=== PATIENT | male | born 1985 | race Caucasian/White ===

== ENCOUNTER 2023-02-14 20:58 | Emergency (ER) | payer OTHER, SELFPAY ==
[2023-02-14 20:58] VITALS: BP 149/87; PULSE 87; RESP 16; TEMP 37.3; O2SAT 97; BMI 36.5
--- NOTE | 2023-02-14 21:01 | ECG_ITS ---
APPROVED REPORT Exam: Resting ECG HR:80 bpm ECG Measurements Heart Rate 80 AXES MT 150 P 39 QRSd 98 QRS -36 QT 289 T 11 QTc 324 Conclusion SINUS RHYTHM LEFT AXIS DEVIATION [QRS AXIS < -30] PATTERN CONSISTENT WITH PULMONARY DISEASE INCOMPLETE RIGHT BUNDLE BRANCH BLOCK [90+ ms QRS DURATION, TERMINAL R IN V1/V2, 40+ ms S IN I/aVL/V4/V5/V6] NONSPECIFIC T-WAVE ABNORMALITY ABNORMAL ECG UNCONFIRMED REPORT Electronically signed by : Sabas Tomlinson MD 02/16/2023 08:54:33
--- NOTE | 2023-02-14 21:12 | XR_ITS ---
PROCEDURE INFORMATION: Exam: XR Chest Exam date and time: 02/14/2023 9:10 PM Age: 37 years old Clinical indication: Shortness of breath; Additional info: SOA TECHNIQUE: Imaging protocol: Radiologic exam of the chest. Views: 2 views. COMPARISON: No relevant prior studies available. FINDINGS: Lungs: No evidence of acute pulmonary disease or infiltrates; lung clemens appear clear. Pleural spaces: No evidence of pleural effusion, pneumothorax, or pleural thickening in the visualized pleural spaces. Heart/Mediastinum: No evidence of mediastinal widening or cardiac silhouette enlargement; the mediastinum and heart appear within normal limits for contour and size. Bones/joints: No evidence of acute osseous abnormalities within the visualized portions of the thoracic spine and ribs. Osseous structures appear appropriate for patient age. Gastrointestinal tract: There is mild gaseous distention of partially visualized bowel loops. IMPRESSION: No dense parenchymal consolidation, pleural effusion, or pneumothorax.
[2023-02-14 21:19] LABS: Basophils # 0.1 K/mm3 (0-0.2); Basophils % 0.6 % (0.1-2.0); Eosinophils # 0.4 K/mm3 (0.0-0.4); Eosinophils % 4.2 % (0.1-12.0); Hematocrit 47.1 % (42.0-52.0); Hemoglobin 15.6 g/dL (14.1-18.0); Lymphocytes # 2.7 K/mm3 (0.7-4.5); Lymphocytes % 31.4 % (10-50); Mean Corpuscular HGB Conc 33.2 g/dL (31.8-35.4); Mean Corpuscular Hemoglobin 29.3 pg (27.0-31.2); Mean Corpuscular Volume 88.4 fl (80-94); Mean Platelet Volume 8.4 fl (7.4-10.4); Monocytes # 0.6 K/mm3 (0.1-1.0); Monocytes % 7.2 % (1.7-9.3); Neutrophils # 4.9 K/mm3 (1.8-7.8); Neutrophils % 56.6 % (37.0-80.0); Platelet Count 334 K/mm3 (142-424); Red Blood Count 5.33 M/mm3 (4.60-6.20); Red Cell Distribution Width 13.4 % (11.5-17.5); White Blood Count 8.7 K/mm3 (4.8-10.8)
[2023-02-14 21:21] LABS: Chloride 105 mmol/L (98-107)
[2023-02-14 21:22] LABS: Potassium 3.5 mmoL/L (3.5-5.1); Sodium 138 mmol/L (136-145)
[2023-02-14 21:24] LABS: Alanine Aminotransferase 55 U/L (12-78); Albumin Level 4.4 g/dl (3.5-5.0); Albumin/Globulin Ratio 1.3 (1.1-1.8); Alkaline Phosphatase 90 U/L (38-126); Anion Gap 10.5 mEq/L (5-15); Aspartate Amino Transferase 40 U/L (17-59); Bilirubin,Total 0.4 mg/dl (0.2-1.3); Blood Urea Nitrogen 18 mg/dl (9-20); Carbon Dioxide 26 mmol/L (22.0-30.0); Creatinine Clearance Estimated 175 mL/min (50-200); Estimated Glomerular Filt Rate 95 ml/min (>60); GFR (African American) 116 ML/MIN (>60); Globulin 3.4 g/dL (1.3-3.2); Total Protein,Serum 7.8 g/dl (6.3-8.2)
[2023-02-14 21:25] LABS: Calcium 9.1 mg/dl (8.4-10.2); Glucose 112 mg/dl (74-100)
[2023-02-14 21:30] VITALS: BP 125/85; PULSE 79; RESP 22; O2SAT 94
[2023-02-14 21:59] LABS: Troponin I < 0.01 ng/ml (0.00-0.034)
--- NOTE | 2023-02-14 22:01 | HMH.EDCP ---
Discharge Plan Disposition Patient Disposition: Still a Patient Prescriptions Prescriptions: New benzonatate 100 mg capsule 100 mg PO TID PRN (Reason: cough) 5 Days Qty: 20 0RF albuterol sulfate 90 mcg/actuation HFA aerosol inhaler 4 inh inhalation Q4H PRN (Reason: shortness of breath or wheezing) Qty: 8.5 0RF Rx Instructions: 4 puffs every 4 hours for 48 hours then as needed for shortness of breath or wheezing following Activity Restrictions/Add. Instructions Additional Instructions/Restrictions: Return the emergency department with any worsening symptoms. Clinical Impressions Clinical Impression: Asthma with exacerbation, Atypical chest pain Discharge ED Provider: Christina Ryan [facility] General Chief Complaint: Shortness of Breath/Dyspnea Stated Complaint: Dyspnea Time Seen by Provider: 02/14/23 21:51 Mode of Arrival: EMS Source of Information: Patient Limitations: No Limitations Description of Symptoms (Recalled from ER Triage Doc. by RN): Pt reports difficulty breathing since 173 today, reports feeling as if someone is sitting on his chest, reports use of his Albuterol inhaler with no help, when ems arrived O2 sat was 91% on room air, was given 1 duoneb, pt now has O2 sat of 97% on room air3 History of Present Illness HPI narrative: Patient is a 37-year-old male with a history of asthma presents today with chest discomfort. States that this has been ongoing for the last 4 hours also states he had a cough some wheezing and some chest pressure. States he has a history of asthma but has not been admitted in the hospital or needed to be treated for an exacerbation for the last several years. Its been 20 years since he has been hospitalized for this. Denies any smoking. Denies any radiation of the symptoms denies any diaphoresis associated with the chest discomfort denies any exertional component of his pain today. Related Data Previous Rx's Medication Instructions Recorded albuterol sulfate 90 mcg/actuation 4 inh inhalation Q4H PRN shortness 02/14/23 aerosol inhaler of breath or wheezing #8.5 grams benzonatate 100 mg capsule 100 mg PO TID PRN cough 5 days #20 02/14/23 caps Allergies Allergy/AdvReac Type Severity Reaction Status Date / Time No Known Allergies Allergy Verified 02/14/23 21:12 [facility] Disclaimer: The information contained in this section may have been updated after the patient was seen, as this information can be updated by other users. Social History Smoking Status: Never smoker alcohol intake: never current occupational status: other Travel in the last 8 weeks: None ROS Obtained: Yes All systems reviewed & no additional complaints except as documented Physical Exam General General appearance: alert Respiratory Respiratory exam: Present normal lung sounds bilaterally; Absent respiratory distress, wheezes, stridor or accessory muscle use Cardiovascular Cardiovascular exam: Present regular rate; Absent tachycardia Abdominal Exam Abdominal exam: Present soft; Absent distention or tenderness Neurological Exam Neurological exam: Present alert and oriented X3 HEART Score HEART Score HEART Score assessment performed?: Yes History (anamnesis): Slightly suspicious ECG: Normal Age: <45 years Risk factors: No known risk factors Troponin: </= normal limit HEART Score: 0 Critical Care Critical Care Time Critical Care Time: No Medical Decision Making Angel Inquiry Pt receiving controlled substance: No Vital Signs Vital Signs: 02/14/23 20:58 02/14/23 22:16 02/14/23 22:16 Temperature 99.1 F Temperature Source Oral Pulse Rate 84 74 Pulse Rate [Right] 87 Respiratory Rate 16 Blood Pressure Blood Pressure [Right Arm] 149/87 H Blood Pressure Mean [Right Arm] 107 Blood Pressure Source [Right Arm] Automatic Cuff Blood Pressure Position [Right Arm] Sitting 02 Sat by Pulse Oximetry 97 Oxygen Delivery Method Room Air
[2023-02-14 22:08] VITALS: BP 151/86; PULSE 78; RESP 24; O2SAT 95
[2023-02-14 22:15] LABS: Coronavirus 19, PCR Not Detected (NotDetected); Influenza A, PCR Not Detected (NotDetected); Influenza B, PCR Not Detected (NotDetected)
[2023-02-14 22:16] VITALS: PULSE 74; PULSE 84
[2023-02-14 22:30] VITALS: BP 133/84; PULSE 82; RESP 20; O2SAT 97
[2023-02-14 23:03] VITALS: BP 129/76; PULSE 76; RESP 16; TEMP 37.1; O2SAT 98
== END 2023-02-14 23:09 | disposition still patient (30) ==
PROVIDERS: Emergency Provider Student in an Organized Health Care Education/Training Program
DX: R06.2 Wheezing (principal); R07.9 Chest pain, unspecified
CPT/HCPCS: 71046; 80053; 84484; 85025; 87636; 93005; 96374; 99284; 99285

== ENCOUNTER 2023-03-09 00:35 | Emergency (ER) | payer OTHER, SELFPAY ==
[2023-03-09 00:37] VITALS: BP 126/82; PULSE 86; RESP 18; TEMP 36.9; O2SAT 96; BMI 36.5
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
[2023-03-09 01:04] VITALS: BP 109/63; PULSE 78; RESP 18; O2SAT 97
[2023-03-09 01:30] VITALS: BP 94/65; PULSE 62; O2SAT 95
[2023-03-09 02:30] VITALS: BP 94/58; PULSE 65; O2SAT 96
[2023-03-09 02:49] VITALS: BP 94/58; PULSE 65; RESP 18; TEMP 36.8; O2SAT 96
== END 2023-03-09 02:55 | disposition home or self-care (01) ==
PROVIDERS: Emergency Provider Emergency Medicine
DX: G43.909 Migraine, unspecified, not intractable, without status migrainosus (principal); R11.0 Nausea; Z87.820 Personal history of traumatic brain injury
CPT/HCPCS: 96361; 96374; 96375; 99284